=== PATIENT | female | born 1940 | race American Indian/Alaskan Native ===

== ENCOUNTER 2016-04-05 05:03 | Emergency (ER) | payer MEDICARE ==
[2016-04-05 05:48] VITALS: BP 135/78
[2016-04-05] MEDS ORDERED: ULTRAM PO ONE (06:37)
--- NOTE | 2016-04-05 06:42 | Emergency Department Report ---
HPI - General Chief Complaint: Back Pain/Injury Time Seen by Provider: 04/05/16 06:29 - HPI HPI: Chief complaint: Chronic back pain with exacerbation HPI: Patient is a 75-year-old female with a history of chronic back pain with sciatica. Patient status post lumbar fusion. Patient takes Tylenol for her pain and states that her pain has increased over the last week. Patient saw Dr. Duran on Wednesday and he is awaiting her records before treating her. Mode of arrival: private car Source: Patient Began: Worsened over the last week Duration: Chronic pain Context: Patient states she does not take hydrocodone because it makes her nauseated and cortisone makes her nauseated. Patient has had epidurals in the past Quality: Sharp and tingly Severity: 10 out of 10 Improved with: Nothing Worsened with: Nothing Associated signs and symptoms: See above ED Past Medical Hx - Past Medical History Previous Medical History?: Yes Hx Hypertension: Yes Hx CVA: Yes Hx Diabetes: Yes Hx Renal Disease: Yes Hx Arthritis: Yes Hx Asthma: Yes Additional medical history: back problems (pinched nerve, stenosis) - Surgical History Past Surgical History?: Yes Additional Surgical History: spinal surgery 02/2014 - Social History Smoking Status: Never Smoker - Medications Home Medications: Home Medications Medication Instructions Recorded Confirmed Last Taken Type Amlodipine Besylate [Amlodipine 10 mg PO DAILY 10/29/14 10/29/14 10/29/14 History Besylate] 10mg Lisinopril/Hydrochlorothiazide 20 mg PO DAILY 10/29/14 10/29/14 10/29/14 History 20/25mg Ranitidine HCl [Ranitidine HCl] 150 mg PO DAILY 10/29/14 10/29/14 10/28/14 History 150mg Simvastatin [Simvastatin] 20 mg PO QHS 10/29/14 10/29/14 10/28/14 History 20mg HYDROcodone/ACETAMINOPHEN 5 ml PO Q6HR #4 oz 11/01/14 Unknown Rx [HYDROcodone-Acetami 10-325/15ML ORAL LIQ] Ondansetron [Zofran ODT TAB] 4 mg PO Q6H #14 tab.rapdis 11/01/14 Unknown Rx methylPREDNISolone [Medrol] 4 mg PO QAM #1 tab.ds.pk 04/05/16 Unknown Rx traMADol [Ultram 50 MG tab] 50 mg PO Q6HR PRN #20 tablet 04/05/16 Unknown Rx ED Review of Systems ROS: Stated complaint: BACK/LEG PAIN Other details as noted in HPI ROS Constitutional: No fever ENT: No uri symptoms Cardiovascular: No chest pain Respiratory: No sob or cough GI: No nausea vomiting or diarrhea : No dysuria frequency or urgency, Skin: No rash Neuro: No focal weakness Psych: No depression Imtiaz/lymph: No edema Physical Exam - Physical Exam Vital Signs: Vital Signs 04/05/16 05:42 Temperature 98.7 F Pulse Rate 84 Respiratory 17 Rate Blood Pressure 135/78 O2 Sat by Pulse 98 Oximetry Physical Exam: GENERAL: The patient is well-developed well-nourished . HEENT: Normocephalic. Atraumatic. Extraocular motions are intact. Patient has moist mucous membranes. NECK: Supple. No meningitic signs are noted. There is no adenopathy noted. CHEST/LUNGS: Clear to auscultation. There is no respiratory distress noted. HEART/CARDIOVASCULAR: Regular. There is no tachycardia. There is no gallop rub or murmur. ABDOMEN: Abdomen is soft, nontender. Patient has normal bowel sounds. There is no abdominal distention. SKIN: There is no rash. There is no edema. There is no diaphoresis. NEURO: The patient is awake, alert, and oriented. The patient is cooperative. The patient has no focal neurologic deficits. The patient has normal speech. MUSCULOSKELETAL: There is no tenderness or deformity. Straight leg raise is negative. There is no limitation range of motion. There is no evidence of acute injury. ED Course Vital Signs 04/05/16 05:42 Temperature 98.7 F Pulse Rate 84 Respiratory 17 Rate Blood Pressure 135/78 O2 Sat by Pulse 98 Oximetry - Reevaluation(s) Reevaluation #1: 04/05/16 Patient given 50 mg of tramadol and will be referred back to Dr. Duran. Critical care attestation.: If time is entered above; I have spent that time in minutes in the direct care of this critically ill patient, excluding procedure time. ED Disposition Clinical Impression: Chronic back pain Qualifiers: Back pain location: low back pain Back pain laterality: right Sciatica presence : with sciatica Sciatica laterality: sciatica of right side Qualified Code(s): M54.41 - Lumbago with sciatica, right side Disposition: DISCHARGED TO HOME OR SELFCARE Is pt being admited?: No Does the pt Need Aspirin: No Condition: Stable Instructions: Chronic Back Pain (ED) Prescriptions: methylPREDNISolone [Medrol] 4 mg PO QAM #1 tab.ds.pk traMADol [Ultram 50 MG tab] 50 mg PO Q6HR PRN #20 tablet PRN Reason: Pain Referrals: DURAN DURAN MD [Staff Physician] - 3-5 Days Time of Disposition: 06:51
== END 2016-04-05 07:03 | disposition home or self-care (01) ==
LOC: ED 05:03
DX: M54.41 Lumbago with sciatica, right side (principal); G89.29 Other chronic pain; I10 Essential (primary) hypertension; I63.9 Cerebral infarction, unspecified; E11.9 Type 2 diabetes mellitus without complications; M19.90 Unspecified osteoarthritis, unspecified site; J45.909 Unspecified asthma, uncomplicated; N28.9 Disorder of kidney and ureter, unspecified; Z98.890 Other specified postprocedural states
CPT/HCPCS: 99283

== ENCOUNTER 2018-08-21 21:36 | Emergency (ER) | payer MEDICARE ==
--- NOTE | 2018-08-21 21:53 | Emergency Department Report ---
ED Back Pain/Injury HPI - General Chief Complaint: Extremity Problem,Nontraumatic Stated Complaint: LEG CRAMPS (BOTH) Time Seen by Provider: 08/21/18 21:41 Source: patient, EMS Mode of arrival: Stretcher Limitations: No Limitations - History of Present Illness Initial Comments: Patient is a 78-year-old female that presents to emergency room with lower back pain radiating to her bilateral lower extremity. Patient states her pain is a 9 out of 10. Patient states pain is worsening. Patient states the pain is better with rest. Patient states the pain is worse with movement. Patient states she is also having muscle cramps in her thighs. Patient states that she had a epidural done on August 02 and since then her patient has slowly increased. P atient sees orthopedist, pain management and physical therapy. Patient states she always has chronic back pain but Has increased lately. Patient is currently taking naltrexone for pain. The patient states her one tablet at night is not doing anything for her pain. Nina ACHARYA Complaint: back pain -: Sudden Similar Symptoms Previously: Yes Place: other Radiation: left leg, right leg Severity: severe Severity scale (0 -10): 9 Quality: sharp Consistency: constant Improves With: supine Worsens With: movement, sitting upright, walking Context: other Associated Symptoms: difficulty walking. denies: confusion, weakness, chest pain, numbness, cough, difficulty urinating, diaphoresis, incontinence, fever/chills, constipation, headaches, abdominal pain, loss of appetite, jana ise, nausea/vomiting, rash, seizure, shortness of breath, syncope Treatments Prior to Arrival: other medications, prescription analgesics - Related Data Home Medications Medication Instructions Recorded Confirmed Last Taken Amlodipine Besylate 10 mg PO DAILY 10/29/14 10/29/14 10/29/14 10mg Lisinopril/Hydrochlorothiazide 20 mg PO DAILY 10/29/14 10/29/14 10/29/14 20/25mg Simvastatin 20 mg PO QHS 10/29/14 10/29/14 10/28/14 20mg raNITIdine HCl [Ranitidine HCl] 150 mg PO DAILY 10/29/14 10/29/14 10/28/14 150mg Previous Rx's Medication Instructions Recorded Last Taken Type HYDROcodone/ACETAMINOPHEN 5 ml PO Q6HR #4 oz 11/01/14 Unknown Rx [HYDROcodone-Acetami 10-325/15ML ORAL LIQ] Ondansetron [Zofran ODT TAB] 4 mg PO Q6H #14 tab.rapdis 11/01/14 Unknown Rx methylPREDNISolone [Medrol] 4 mg PO QAM #1 tab.ds.pk 04/05/16 Unknown Rx traMADol [Ultram 50 MG tab] 50 mg PO Q6HR PRN #20 tablet 04/05/16 Unknown Rx Sulfamethoxazole/Trimethoprim 1 each PO BID 10 Days #20 tablet 08/22/18 Unknown Rx [Bactrim DS TAB] Allergies Allergy/AdvReac Type Severity Reaction Status Date / Time cortisone [Cortisone] Allergy Unknown Verified 09/13/13 10:09 ED Review of Systems ROS: Stated complaint: LEG CRAMPS (BOTH) Other details as noted in HPI Constitutional: denies: chills, fever Eyes: denies: eye pain, eye discharge, vision change ENT: denies: ear pain, throat pain Respiratory: denies: cough, shortness of breath, wheezing Cardiovascular: denies: chest pain, palpitations Endocrine: no symptoms reported Gastrointestinal: denies: abdominal pain, nausea, diarrhea Genitourinary: denies: urgency, dysuria, discharge Musculoskeletal: back pain, myalgia. denies: joint swelling, arthralgia Skin: denies: rash, lesions Neurological: denies: headache, weakness, paresthesias Psychiatric: denies: anxiety, depression Hematological/Lymphatic: denies: easy bleeding, easy bruising ED Past Medical Hx - Past Medical History Previous Medical History?: Yes Hx Hypertension: Yes Hx CVA: Yes Hx Diabetes: Yes Hx Renal Disease: Yes Hx Arthritis: Yes Hx Asthma: Yes Additional medical history: back problems (pinched nerve, stenosis) - Surgical History Past Surgical History?: Yes Additional Surgical History: spinal surgery 02/2014, left and right shoulder sx, both knee replacement - Family History Family history: no significant - Social History Smoking Status: Former Smoker Substance Use Type: None - Medications Home Medications: Home Medications Medication Instructions Recorded Confirmed Last Taken Type Amlodipine Besylate 10 mg PO DAILY 10/29/14 10/29/14 10/29/14 History 10mg Lisinopril/Hydrochlorothiazide 20 mg PO DAILY 10/29/14 10/29/14 10/29/14 History 20/25mg Simvastatin 20 mg PO QHS 10/29/14 10/29/14 10/28/14 History 20mg raNITIdine HCl [Ranitidine HCl] 150 mg PO DAILY 10/29/14 10/29/14 10/28/14 History 150mg HYDROcodone/ACETAMINOPHEN 5 ml PO Q6HR #4 oz 11/01/14 Unknown Rx [HYDROcodone-Acetami 10-325/15ML ORAL LIQ] Ondansetron [Zofran ODT TAB] 4 mg PO Q6H #14 tab.rapdis 11/01/14 Unknown Rx methylPREDNISolone [Medrol] 4 mg PO QAM #1 tab.ds.pk 04/05/16 Unknown Rx traMADol [Ultram 50 MG tab] 50 mg PO Q6HR PRN #20 tablet 04/05/16 Unknown Rx Sulfamethoxazole/Trimethoprim 1 each PO BID 10 Days #20 tablet 08/22/18 Unknown Rx [Bactrim DS TAB] ED Physical Exam - General Limitations: No Limitations General appearance: alert, in no apparent distress - Head Head exam: Present: atraumatic, normocephalic - Eye Eye exam: Present: normal appearance - ENT ENT exam: Present: mucous membranes moist - Neck Neck exam: Present: normal inspection - Respiratory Respiratory exam: Present: normal lung sounds bilaterally. Absent: respiratory distress - Cardiovascular Cardiovascular Exam: Present: regular rate, normal rhythm. Absent: systolic murmur, diastolic murmur, rubs, gallop - GI/Abdominal GI/Abdominal exam: Present: soft, normal bowel sounds - Extremities Exam Extremities exam: Present: normal inspection - Back Exam Back exam: Present: normal inspection, tenderness, muscle spasm, paraspinal tenderness, vertebral tenderness, other (positive straight leg test) - Neurological Exam Neurological exam: Present: alert, oriented X3 - Psychiatric Psychiatric exam: Present: normal affect, normal mood - Skin Skin exam: Present: warm, dry, intact, normal color. Absent: rash ED Course Vital Signs 08/21/18 08/21/18 08/21/18 21:44 21:47 22:00 Temperature 97.9 F Pulse Rate 86 87 71 Respiratory 11 L 16 8 L Rate Blood Pressure 143/77 125/60 Blood Pressure 143/77 [Left] O2 Sat by Pulse 98 99 98 Oximetry 08/21/18 08/21/18 08/22/18 23:00 23:16 00:00 Temperature Pulse Rate 70 70 71 Respiratory 11 L 13 12 Rate Blood Pressure 128/70 128/70 120/61 Blood Pressure [Left] O2 Sat by Pulse 97 99 98 Oximetry 08/22/18 01:00 Temperature Pulse Rate 77 Respiratory 24 Rate Blood Pressure 120/61 Blood Pressure [Left] O2 Sat by Pulse 99 Oximetry - Reevaluation(s) Reevaluation #1: Initial evaluation. Patient agrees with CT scan of the lumbar spine. 08/21/18 22:58 Discussed all results with patient. Patient is stable for discharge. Patient will be discharged home.. Patient agrees to plan of care.. Patient given discharge instructions. Patient voiced understanding of discharge instructions. 08/22/18 01:35 ED Medical Decision Making - Lab Data Result diagrams: 08/21/18 22:44 08/21/18 23:07 - Radiology Data Radiology results: report reviewed PROCEDURE: CT LUMBAR SPINE WO CON HISTORY: back pain COMPARISON: None available. 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 L3-L5: Lumbar decompression laminectomies and posterior fusion with metallic pedicle screws and stabilization rods in situ; no evidence for gross prosthetic loosening, fracture, or displacement. No gross vertebral fracture, spondylolisthesis, retrolisthesis, or spondylolysis seen. No gross disc herniation seen. Note that subtle soft tissue abnormalities can be obscured in this radiographic setting. Consider follow-up MRI if clinically warranted. IMPRESSION: - No acute fracture or malalignment seen. 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 - L3-L5: Lumbar decompression laminectomies and posterior fusion with metallic pedicle screws and stabilization rods in situ; no evidence for gross prosthetic loosening, fracture, or displacement. - Medical Decision Making Is a 78-year-old female who presents emergency with worsening chronic back pain. Patient recently had an epidural. Patient had a CT scan and shows old chronic changes. Patient's labs unremarkable except for UTI. Patient will be given m edications. Due to the fact the patient is on naltrexone which is a opiate antagonist, patient was given Toradol. Patient unable to take narcotic pain medications due to this medication. Patient discharged home. Patient given discharge instructions. Patient stable for discharge. Patient will need to follow up with her pain specialist for further evaluation and treatment. Patient instructed to increase water. - Differential Diagnosis back pain. Chronic back pain. UTI. Muscle cramps Critical care attestation.: If time is entered above; I have spent that time in minutes in the direct care of this critically ill patient, excluding procedure time. ED Disposition Clinical Impression: Muscle cramps Chronic back pain Qualifiers: Back pain location: low back pain Back pain laterality: bilateral Sciatica presence: with sciatica Sciatica laterality: bilateral sciatica Qualified Code(s): M54.42 - Lumbago with sciatica, left side; M54.41 - Lumbago with sciatica, right side; G89.29 - Other chronic pain UTI (urinary tract infection) Qualifiers: Urinary tract infection type: acute cystitis Hematuria presence: with hematuria Qualified Code(s): N30.01 - Acute cystitis with hematuria Disposition: - TO HOME OR SELFCARE Is pt being admited?: No Does the pt Need Aspirin: No Condition: Stable Instructions: Chronic Back Pain (ED), Urinary Tract Infection in Women (ED) Additional Instructions: Patient to follow-up with primary care in 2-3 days. Patient to follow up with her specialist within 2-3 days. Patient to take Tylenol or ibuprofen when necessary for pain. Patient to return to ER if condition worsens. Patient to take meds as directed. Patient to increase water. Patient to rest. Patient to continue all meds. Prescriptions: Sulfamethoxazole/Trimethoprim [Bactrim DS TAB] 1 each PO BID 10 Days #20 tablet Referrals: ILIA MIX MD [Primary Care Provider] - 2-3 Days Time of Disposition: 01:33
[2018-08-21 23:00] LABS: Hemoglobin 12.5 gm/dl (10.1-14.3); Mean Corpuscular HGB Conc 34 % (30-34); Mean Corpuscular Volume 88 fl (79-97); Platelet Count 297 K/mm3 (140-440); Red Blood Count 4.21 M/mm3 (3.65-5.03); Red Cell Distribution Width 14.3 % (13.2-15.2)
[2018-08-21 23:26] LABS: Bacteria,Urine 1+ /HPF (Negative); Bilirubin,Urine NEG (Negative); Blood,Urine SM (Negative); Color,Urine Yellow (Yellow); Protein,Urine <15 mg/dL mg/dL (Negative); Urobilinogen,Urine < 2.0 mg/dL (<2.0)
[2018-08-22 00:09] LABS: Alanine Aminotransferase 14 units/L (7-56); Albumin 4.1 g/dL (3.9-5); BUN/Creatinine Ratio 16; Blood Urea Nitrogen 14 mg/dL (7-17); Calcium 9.6 mg/dL (8.4-10.2); Hemolysis Index 5
--- NOTE | 2018-08-22 01:09 | Cat Scan Report ---
PROCEDURE: CT LUMBAR SPINE WO CON HISTORY: back pain COMPARISON: None available. 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 L3-L5: Lumbar decompression laminectomies and posterior fusion with metallic pedicle screws and stabi lization rods in situ; no evidence for gross prosthetic loosening, fracture, or displacement. No gross vertebral fracture, spondylolisthesis, retrolisthesis, or spondylolysis seen. No gross disc herniation seen. Note that subtle soft tissue abnormalities can be obscured in this ra diographic setting. Consider follow-up MRI if clinically warranted. IMPRESSION: - No acute fracture or malalignment seen. 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 - L3-L5: Lumbar decompression laminectomies and posterior fusion with metallic pedicle screws and st abilization rods in situ; no evidence for gross prosthetic loosening, fracture, or displacement. This document is electronically signed by Richard Lester MD., August 22 2018 01:07:23 AM ET
[2018-08-22] MEDS ORDERED: ROCEPHIN/NS 1 GM/50 ML 1 GM/50 ML BAG IV ONE (01:32)
[2018-08-22] MEDS ORDERED: TORADOL IV ONE (01:32)
[2018-08-22 03:02] VITALS: BP 121/67
== END 2018-08-22 03:01 | disposition home or self-care (01) ==
LOC: ED 21:36
DX: M54.42 Lumbago with sciatica, left side (principal); M54.41 Lumbago with sciatica, right side; G89.29 Other chronic pain; N39.0 Urinary tract infection, site not specified; I10 Essential (primary) hypertension; E11.9 Type 2 diabetes mellitus without complications; J45.909 Unspecified asthma, uncomplicated; M19.90 Unspecified osteoarthritis, unspecified site; Z88.8 Allergy status to other drugs, medicaments and biological substances; Z79.899 Other long term (current) drug therapy; Z87.442 Personal history of urinary calculi; Z87.820 Personal history of traumatic brain injury; Z96.651 Presence of right artificial knee joint; Z96.652 Presence of left artificial knee joint; Z98.890 Other specified postprocedural states; Z87.891 Personal history of nicotine dependence
CPT/HCPCS: 36415; 72131; 80053; 81001; 82550; 85027; 87086; 96365; 96375; 99284; J0696; J1885